=== PATIENT | female | born 1990 | race American Indian/Alaskan Native ===

== ENCOUNTER 2021-07-15 14:05 | Emergency (ER) | payer MEDICAID ==
[2021-07-15] MEDS ORDERED: SODIUM CHLORIDE 0.9% 1000 ML 1,000 ML IV ONE (14:34)
--- NOTE | 2021-07-15 15:29 | Emergency Department Report ---
ED General Adult HPI - General Chief complaint: Recheck/Abnormal Lab/Rx Stated complaint: SOB, SWOLLEN FEET, HEADACHE Source: patient Mode of arrival: Ambulatory Limitations: No Limitations - History of Present Illness Initial comments: Patient is a A0 31-year-old -Romanian female who is 6 days presents to the ED with complaint of acute onset persistent shortness of breath, chest pain, headache and bilateral lower extremity edema for the last 3 days. Patient states that she delivered through spontaneous vaginal delivery and was discharged from the hospital 2 days later. Patient states that her shortness of breath and chest pain get worse with exertion. Patient denies fever, chills, nausea and vomiting, abdominal pain, dysuria, urinary frequency and urgency, dizziness, syncope, sore throat or diarrhea and low back pain. MD Complaint: chest pain, dyspnea on exertion, lightheadedness -: Sudden, days(s) (4) Location: head (headache), chest (dyspnea, chest pain) Radiation: non-radiation Severity scale (0 -10): 7 Quality: aching Consistency: constant Improves with: none Worsens with: movement Associated Symptoms: denies other symptoms, chest pain, malaise, shortness of breath, weakness, other (Lightheadedness). denies: confusion, cough, diaphoresis, fever/chills, headaches, loss of appetite, nausea/vomiting, rash, seizure Treatments Prior to Arrival: none - Related Data Home Medications Medication Instructions Recorded Confirmed Last Taken Azithromycin [Zithromax [place]] 500 mg PO ONCE 07/07/21 07/07/21 07/06/21 17:30 One Daily Tablet 1 tab PO DAILY 07/07/21 07/07/21 07/05/21 10:00 metroNIDAZOLE [Metronidazole] 500 tab PO BID 07/07/21 07/07/21 07/07/21 20:00 Previous Rx's Medication Instructions Recorded Last Taken Type Ferrous Sulfate [Feosol 325 MG tab] 325 mg PO BID 30 Days #60 tablet 07/11/21 Unknown Rx Ibuprofen [Motrin 800 MG tab] 800 mg PO Q8H PRN #21 tablet 07/11/21 Unknown Rx Ibuprofen [Motrin] 800 mg PO Q8HR PRN #30 tablet 07/15/21 Unknown Rx cephALEXin [Keflex] 500 mg PO Q8HR #30 cap 07/15/21 Unknown Rx Allergies Allergy/AdvReac Type Severity Reaction Status Date / Time No Known Allergies Allergy Verified 07/07/21 23:43 ED Review of Systems ROS: Stated complaint: SOB, SWOLLEN FEET, HEADACHE Other details as noted in HPI Constitutional: denies: chills, fever Eyes: denies: eye pain, eye discharge, vision change ENT: denies: ear pain, throat pain Respiratory: denies: cough, shortness of breath, wheezing Cardiovascular: denies: chest pain, palpitations Endocrine: no symptoms reported Gastrointestinal: denies: abdominal pain, nausea, diarrhea Genitourinary: denies: urgency, dysuria, discharge Musculoskeletal: denies: back pain, joint swelling, arthralgia Skin: denies: rash, lesions Neurological: denies: headache, weakness, paresthesias Psychiatric: denies: anxiety, depression Hematological/Lymphatic: denies: easy bleeding, easy bruising ED Past Medical Hx - Past Medical History Hx Hypertension: No Hx Heart Attack/AMI: No Hx Congestive Heart Failure: No Hx Diabetes: No Hx Deep Vein Thrombosis: No Hx Liver Disease: No Hx Renal Disease: No Hx Sickle Cell Disease: No Hx Seizures: No Hx Asthma: No Hx COPD: No Hx HIV: No - Social History Smoking Status: Never Smoker - Medications Home Medications: Home Medications Medication Instructions Recorded Confirmed Last Taken Type Azithromycin [Zithromax [place]] 500 mg PO ONCE 07/07/21 07/07/21 07/06/21 17:30 History One Daily Tablet 1 tab PO DAILY 07/07/21 07/07/21 07/05/21 10:00 History metroNIDAZOLE [Metronidazole] 500 tab PO BID 07/07/21 07/07/21 07/07/21 20:00 History Ferrous Sulfate [Feosol 325 MG tab] 325 mg PO BID 30 Days #60 tablet 07/11/21 Unknown Rx Ibuprofen [Motrin 800 MG tab] 800 mg PO Q8H PRN #21 tablet 07/11/21 Unknown Rx Ibuprofen [Motrin] 800 mg PO Q8HR PRN #30 tablet 07/15/21 Unknown Rx cephALEXin [Keflex] 500 mg PO Q8HR #30 cap 07/15/21 Unknown Rx ED Physical Exam - General Limitations: No Limitations General appearance: alert, in no apparent distress - Head Head exam: Present: atraumatic, normocephalic, normal inspection - Eye Eye exam: Present: normal appearance, PERRL, EOMI Pupils: Present: normal accommodation - ENT ENT exam: Present: normal exam, normal orophraynx, mucous membranes moist, TM's normal bilaterally, normal external ear exam - Neck Neck exam: Present: normal inspection, full ROM. Absent: tenderness - Respiratory Respiratory exam: Present: normal lung sounds bilaterally. Absent: respiratory distress, wheezes, rales, rhonchi, stridor, chest wall tenderness, accessory muscle use, prolonged expiratory - Cardiovascular Cardiovascular Exam: Present: normal rhythm, bradycardia, normal heart sounds. Absent: systolic murmur, diastolic murmur, rubs, gallop - GI/Abdominal GI/Abdominal exam: Present: soft, normal bowel sounds. Absent: tenderness, guarding, rebound, hyperactive bowel sounds, hypoactive bowel sounds, organomegaly, mass - Extremities Exam Extremities exam: Present: normal inspection, full ROM, normal capillary refill. Absent: tenderness - Back Exam Back exam: Present: normal inspection, full ROM. Absent: tenderness, CVA tenderness (R), CVA tenderness (L), muscle spasm, paraspinal tenderness, vertebral tenderness - Neurological Exam Neurological exam: Present: alert, oriented X3, CN II-XII intact, normal gait, reflexes normal - Psychiatric Psychiatric exam: Present: normal affect, normal mood, anxious - Skin Skin exam: Present: warm, dry, intact, normal color. Absent: rash ED Course Vital Signs 07/15/21 07/15/21 14:11 19:04 Temperature 97.9 F Pulse Rate 55 L Respiratory 16 Rate Blood Pressure 135/77 [Left] O2 Sat by Pulse 98 99 Oximetry ED Medical Decision Making - Lab Data Result diagrams: 07/15/21 15:55 07/15/21 15:55 - EKG Data EKG shows normal: sinus rhythm Rate: normal - EKG Data Interpretation: normal EKG - Radiology Data Radiology results: report reviewed, image reviewed [facility] [address] [place] [address] Cat Scan Report Signed Patient: ZULMA OCHOA MR#: [id number] : 1990 Acct:[id number] Age/Sex: 31 / F ADM Date: 07/15/21 Loc: ED Attending Dr: Ordering Physician: ANABELA VARMA Date of Service: 07/15/21 Procedure(s): CT angio chest Accession Number(s): [id number] cc: ANABELA VARMA CTA CHEST WITH CONTRAST INDICATION / CLINICAL INFORMATION: CHEST PAIN, DYSPNEA, 6 DAYS , R/O PE. TECHNIQUE: Axial CT images were obtained through the chest after injection of Omnipaque [address] 3 plane MIP and/or 3D reconstructions were produced. All CT scans at this location are performed using CT dose reduction for ALARA by means of automated exposure control. COMPARISON: None available. FINDINGS: PULMONARY EMBOLUS: None. THORACIC AORTA: No significant abnormality. HEART: No significant abnormality. CORONARY ARTERY CALCIFICATION: Absent -- None. MEDIASTINUM / ADDY: No significant abnormality. PLEURA: Small bilateral pleural effusions. No pneumothorax. LUNGS: No acute air space or interstitial disease. ADDITIONAL FINDINGS: None. UPPER ABDOMEN: No acute findings. SKELETAL STRUCTURES: No significant osseous abnormality. IMPRESSION: 1. No CT evidence for pulmonary embolism. 2. Small bilateral pleural effusions noted. Signer Name: Tomer Warren MD Signed: 07/15/2021 6:53 PM Workstation Name: [id number] Transcribed By: LAMONTE Dictated By: Tomer Warren MD Electronically Authenticated By: Tomer Warren MD Signed Date/Time: 07/15/211852 DD/ 51 TD/TT: - Medical Decision Making This is a A0 31-year-old -Romanian female who is 6 days presents to the ED with complaint of acute onset persistent shortness of breath, chest pain, headache and bilateral lower extremity edema for the last 3 days. Patient states that she delivered through spontaneous vaginal delivery and was discharged from the hospital 2 days later. Patient states that her shortness of breath and chest pain get worse with exertion. In the ED, patient is alert and oriented x3 and is not in any distress, anxious but hemodynamically stable. Lab test results were reviewed and are all nonactionable except for H&H of 8.4 and 26.5 respectively. Urinalysis showed mild urinary tract infection. Chest CTA showed no acute abnormalities or any evidence of PE but incidental finding of small pleural effusions bilaterally. Patient was treated for pain in the ED. On reevaluation, patient felt better, patient will discharge home and advised to follow-up with her [employer] [employer] [facility] physician in 5 to 6 days for reevaluation and to return to the ED immediately if symptoms get worse. Patient verbalized understanding and promised to comply. - Differential Diagnosis PE; pneumonia; cardiomyopathy; anxiety; preeclampsia; eclampsia Critical care attestation.: If time is entered above; I have spent that time in minutes in the direct care of this critically ill patient, excluding procedure time. ED Disposition Clinical Impression: Shortness of breath on exertion, Nonspecific chest pain, Acute urinary tract infection, Tension headache, Anxiety as acute reaction to exceptional stress Disposition: 01 HOME / SELF CARE / HOMELESS Is pt being admited?: No Does the pt Need Aspirin: No Condition: Stable Instructions: Shortness of Breath, Adult, [id number], Nonspecific Chest Pain, Adult, [id number], Urinary Tract Infection, Adult, Jlux-[id number], Generalized Anxiety Disorder, Adult, Tension Headache, Adult, [id number] Additional Instructions: All lab test results were reviewed and are all nonactionable. Chest CTA showed no evidence of pulmonary embolism or pneumonia. Therefore take medications as advised, drink plenty of fluids and follow-up with your [employer] physician in 5 to 7 days for reevaluation or return to the ED immediately if symptoms get worse. Prescriptions: cephALEXin [Keflex] 500 mg PO Q8HR #30 cap Ibuprofen [Motrin] 800 mg PO Q8HR PRN #30 tablet PRN Reason: Pain , Severe (7-10) Referrals: LAWANDA DECKER MD [Staff Physician] - 3-5 Days Time of Disposition: 19:48 Print Language: NIGERIAN
[2021-07-15 16:25] LABS: Hematocrit 26.5 % (30.3-42.9); Hemoglobin 8.4 gm/dl (10.1-14.3); Mean Corpuscular HGB Conc 32 % (30-34); Mean Corpuscular Volume 81 fl (79-97); Platelet Count 262 K/mm3 (140-440); Red Blood Count 3.27 M/mm3 (3.65-5.03)
[2021-07-15 16:28] LABS: Alanine Aminotransferase 11 units/L (7-56); BUN/Creatinine Ratio 10; Blood Urea Nitrogen 6 mg/dL (7-17); Calcium 8.1 mg/dL (8.4-10.2); Hemolysis Index 0
--- NOTE | 2021-07-15 18:57 | Cat Scan Report ---
CTA CHEST WITH CONTRAST INDICATION / CLINICAL INFORMATION: CHEST PAIN, DYSPNEA, 6 DAYS , R/O PE. TECHNIQUE: Axial CT images were obtained through the chest after injection of Omnipaque [address] 3 plane MIP and/or 3D reconstructions were produced. All CT scans at this location are performed using CT dose reduction for ALARA by means of automated exposure control. COMPARISON: None available. FINDINGS: PULMONARY EMBOLUS: None. THORACIC AORTA: No significant abnormality. HEART: No significant abnormality. CORONARY ARTERY CALCIFICATION: Absent -- None. MEDIASTINUM / ADDY: No significant abnormality. PLEURA: Small bilateral pleural effusions. No pneumothorax. LUNGS: No acute air space or interstitial disease. ADDITIONAL FINDINGS: None. UPPER ABDOMEN: No acute findings. SKELETAL STRUCTURES: No significant osseous abnormality. IMPRESSION: 1. No CT evidence for pulmonary embolism. 2. Small bilateral pleural effusions noted. Signer Name: Tomer Warren MD Signed: 07/15/2021 6:53 PM Workstation Name: [id number]
[2021-07-15 19:03] LABS: Bacteria,Urine 1+ /HPF (Negative); Bilirubin,Urine NEG (Negative); Blood,Urine MOD (Negative); Color,Urine Straw (Yellow); Protein,Urine <15 mg/dL mg/dL (Negative); Urobilinogen,Urine < 2.0 mg/dL (<2.0)
[2021-07-15 19:51] VITALS: BP 148/75
--- NOTE | 2021-07-16 10:33 | Electrocardiograph Report ---
[facility] Test Date: 2021-07-15 Test Time: 15:08:27 Pat Name: ZULMA OCHOA Department: Room: Gender: F Case Investigator: BRIANNA : 1990 Requested By: USHA BURKS Order Number: [id number] Reading MD: Bradley Amanda Measurements Intervals [place] Rate: 59 P: 35 NC: 172 QRS: 62 QRSD: 79 T: 57 QT: 427 QTc: 423 Interpretive Statements Sinus arrhythmia t wave inversion anterior leads No previous ECG available for comparison Electronically Signed On 07-16-2021 10:33:04 EDT by Bradley Amanda
== END 2021-07-15 20:25 | disposition home or self-care (01) ==
LOC: ED 14:05
DX: N39.0 Urinary tract infection, site not specified (principal); R06.02 Shortness of breath; R07.9 Chest pain, unspecified; G44.209 Tension-type headache, unspecified, not intractable; F43.0 Acute stress reaction
CPT/HCPCS: 36415; 71275; 80053; 81001; 84484; 85025; 86850; 86900; 86901; 87086; 93005; 96360; 99284; J7030; Q9967

== ENCOUNTER 2021-10-24 18:28 | Emergency (ER) | payer MEDICAID ==
[2021-10-24 19:58] VITALS: BP 163/92
== END 2021-10-24 23:52 | disposition left against medical advice (07) ==
LOC: ED 18:28
DX: K08.89 Other specified disorders of teeth and supporting structures (principal); Z53.21 Procedure and treatment not carried out due to patient leaving prior to being seen by health care provider